=== PATIENT | female | born 1950 | race Caucasian/White ===

== ENCOUNTER → 2021-05-17 09:31 | Outpatient (CLI) | payer MEDICARE, OTHER, SELFPAY ==
--- NOTE | 2021-05-17 09:39 | ECHOD_ITS ---
Version 2 Reason For Study: MURMUR Procedure This was a 2D Doppler, Color Flow transthoracic echocardiogram. Exam performed in department. Left Ventricle Normal LV size. The estimated ejection fraction is 60 %. Normal diastology for age. No regional wall motion abnormalities noted. Right Ventricle Normal RV size. Normal systolic function. Atria Normal left atrium. Normal right atrium. No doppler evidence for ASD. Mitral Valve There is no mitral valve stenosis. Mild (1+) mitral valve insufficiency. Tricuspid Valve There is no tricuspid stenosis. Trivial tricuspid valve insufficiency. Unable to estimate RV systolic pressure due to insufficient tricuspid regurgitant envelope. Aortic Valve Trisinus/trileaflet aortic valve. There is no aortic stenosis. Mild (1+) aortic valve insufficiency. Pulmonic Valve There is no pulmonic valvular stenosis. Trivial pulmonic valve insufficiency. Great Vessels Normal aortic root. Pericardium/Pleural No pericardial effusion. MMode/2D Measurements & Calculations LVIDd: 4.0 cm IVSd: 0.85 cm Ao root diam: 3.0 cm LVIDs: 2.9 cm LVPWd: 0.81 cm RVDd: 2.8 cm FS: 27.7 % LAV(MOD-bp): 29.1 ml LVAd ap4: 26.8 cm2 SV(MOD-sp4): 46.7 ml LAV(MOD-bp) Indexed: 17.0 ml/m2 LVLd ap4: 7.5 cm LAV(MOD-sp2): 30.6 ml EDV(MOD-sp4): 78.0 ml LAV(MOD-sp4): 27.3 ml EDV(sp4-el): 81.4 ml LVAs ap4: 15.0 cm2 LVLs ap4: 6.0 cm ESV(MOD-sp4): 31.3 ml ESV(sp4-el): 32.0 ml EF(MOD-sp4): 59.9 % EF(sp4-el): 60.6 % SV(sp4-el): 49.4 ml LA A4 area: 13.0 cm2 LA dimension(2D): 3.1 cm RA A4 area: 10.4 cm2 Time Measurements MV dec time: 0.13 sec Doppler Measurements & Calculations MV E max jorge a: 51.9 cm/sec Lat Peak E' Jorge A: 8.3 cm/sec Med Peak E' Jorge A: 5.5 cm/sec MV A max jorge a: 76.7 cm/sec E/E' lat: 6.3 E/E' med: 9.4 MV E/A: 0.68 Ao V2 max: 139.8 cm/sec AI max jorge a: 548.9 cm/sec LV V1 max: 70.0 cm/sec Ao max P.8 mmHg AI max P.5 mmHg LV V1 max P.0 mmHg AI dec slope: 340.2 cm/sec2 AI P1/2t: 472.7 msec PA V2 max: 70.4 cm/sec ECHO/Echo Complete Interpretation Summary The estimated ejection fraction is 60 %. Mild (1+) mitral valve insufficiency. Mild (1+) aortic valve insufficiency. Ordering Physician: Flip Sanchez Referring Physician: Flip Sanchez Performed By: Thalia Orellana, IVANA
== END ==
PROVIDERS: PCP Family Medicine; Referring Provider Family Medicine; Visit Provider Family Medicine
DX: R01.1 Cardiac murmur, unspecified (principal); R06.02 Shortness of breath
CPT/HCPCS: 93306

== ENCOUNTER → 2022-12-30 | Outpatient (CLI) | payer MEDICARE, OTHER, SELFPAY ==
--- NOTE | 2022-12-30 17:24 | STRESSREP ---
Stress Test Report Exercise stress test. 72-year-old lady with a history of dyspnea on exertion Stress protocol: Resting EKG demonstrates normal sinus rhythm with a rate of 68 bpm resting blood pressure is 126/80 mmHg. The patient exercised according to the regular Ziggy protocol for a total duration of 3 minutes attaining a maximum heart rate of 137 bpm which was 92% of maximum predicted heart rate; the maximum workload was 4.8 metabolic equivalents. At rest there were no ST or T wave changes noted to suggest ischemia and at peak exercise upsloping ST changes only were noted which did not meet the criteria for ischemia. No clinical angina was noted the test was terminated due to the target heart rate being achieved/fatigue. The peak blood pressure was 168/78 mmHg. Rate-pressure product was 22,300. Conclusion: Exercise stress test with no EKG changes noted at a low workload of 4.8 METS. This may affect sensitivity for detection of ischemia.
== END | disposition home or self-care (01) ==
LOC: CVS 09:27
PROVIDERS: PCP Family Medicine; Referring Provider Family Medicine; Visit Provider Family Medicine
DX: R06.09 Other forms of dyspnea (principal)
CPT/HCPCS: 93017

== ENCOUNTER → 2023-01-01 | Outpatient (CLI) | payer MEDICARE, OTHER, SELFPAY ==
--- NOTE | 2023-01-01 13:43 | PFTCOMP ---
Complete pulmonary function test report Date: 01/01/2023 Indication: Dyspnea on exertion Referring physician: Francois Tong Smoking history: None Spirometry pre and post bronchodilator was normal: 1. No evidence of airway obstruction 2. No response to bronchodilator 3. Review of flow volume loop and volume-time curve morphology is corroborate the normal results above. The patient notes technical criteria of acceptability and reproducibility. The ophthalmology technician comments indicated a good patient effort. Lung volume studies by plethysmography were normal. 1. There was no evidence of restriction or hyperinflation. Diffusion capacity by single breath carbon monoxide technique was normal: 1. No evidence of gas exchange abnormality. 2. When corrected for lung volumes, the patient's DL/VA was 149% predicted, corroborating the lack of gas exchange abnormality. If further evaluation of possible airway reactivity is clinically indicated, methacholine challenge testing is recommended. Herminio Jarquin MD [facility] Pulmonary Medicine [facility] 01/01/2023, 1346 hrs.
== END | disposition home or self-care (01) ==
LOC: PSN 09:02
PROVIDERS: PCP Family Medicine; Referring Provider Family Medicine; Visit Provider Family Medicine
DX: R06.09 Other forms of dyspnea (principal); J84.10 Pulmonary fibrosis, unspecified
CPT/HCPCS: 94060; 94726; 94729

== ENCOUNTER → 2023-03-13 | Outpatient (CLI) | payer MEDICARE, OTHER, SELFPAY ==
[2023-03-13 12:23] LABS: Rheumatoid Factor < 10.0 IU/mL (<15)
[2023-03-14 13:09] LABS: ANTINUCLEAR ANTIBODIES DIRECT Negative (Negative)
[2023-03-14 14:10] LABS: CCP IgG Antibodies 3 units (0-19); Cytoplasmic Ab (C-ANCA) <1:20 titer (Neg:<1:20); Perinuclear Ab (P-ANCA) <1:20 titer (Neg:<1:20)
== END | disposition home or self-care (01) ==
LOC: PAVLAB 10:40
PROVIDERS: PCP Family Medicine; Referring Provider Internal Medicine Critical Care Medicine; Visit Provider Internal Medicine Critical Care Medicine
DX: J98.4 Other disorders of lung (principal)
CPT/HCPCS: 36415; 86038; 86200; 86225; 86235; 86256; 86431

== ENCOUNTER 2023-04-22 13:34 | Observation (INO) | payer MEDICARE, OTHER, SELFPAY ==
[2023-04-22] VITALS (14 sets, daily range): BP systolic 115–170; BP diastolic 69–104; PULSE 74–100; RESP 15–18; TEMP 36.1–36.6; O2SAT 95–96; BMI 24.1; BMI 23.1
--- NOTE | 2023-04-22 14:16 | ED.VIS.CHEST ---
HPI History of Present Illness Chief Complaint: Chest Pain Detail of Chief Complaint: Mid sternal chest pain radiating her left arm and jaw. Informant: patient Onset/Context/Timing Onset: Today and Hours Activity at onset: gradual Timing: Continuous Quality: Positive for Aching and Heaviness Location: Substernal and Left Chest Current Severity: Moderate Maximum Severity: Moderate Worsened By: Nothing Relieved By: Nothing Associated Symptoms: Positive for Nausea and Dyspnea Narrative Narrative: 72-year-old female complaining of midsternal chest pain rating to her left arm since last 2 hours. No history of OH or CAD. No prior cardiac catheterization. She reportedly had a negative stress test around December. She does have a history of reflux states that this feels totally different and much worse than her reflux.. Prior Similar Symptoms: No Recent Illness/Hospitalization: No CVD Risk Factors: Positive for Hypertension; Negative for Diabetes or Smoking PE Risk Factors: Negative for Recent Travel/Surgery, Recent Immobilization, Prior DVT or PE, Cancer or OCP + Smoking + >/=35 TAD Risk Factors: Negative for Marfan's Syndrome [facility] Medical History Coronary artery calcification seen on CAT scan Family history of diabetes mellitus Family history of early CAD Family history of [place]'s disease GERD (gastroesophageal reflux disease) Hiatal hernia Hypercholesteremia Hyperlipemia Primary hypertension Pulmonary fibrosis Home Medications aspirin 81 mg chewable tablet ([place] Chewable Low Dose Aspirin) 81 mg PO DAILY HEART HEALTH 03/04/23 [History Last Taken Unknown] benazepril 10 mg tablet (Lotensin) 10 mg PO DAILY BLOOD PRESSURE 03/04/23 [History Last Taken Unknown] ezetimibe 10 mg tablet (Zetia) 10 mg PO DAILY CHOLESTEROL 03/04/23 [History Last Taken Unknown] meclizine 25 mg tablet 25 mg PO DAILY PRN DIZZINESS 03/04/23 [History Last Taken Unknown] metoclopramide HCl 5 mg tablet (Reglan) 5 mg PO QAC HEARTBURN 03/04/23 [History Last Taken Unknown] omeprazole 40 mg capsule,delayed release 40 mg PO BID ACID REFLUX 03/04/23 [History Last Taken Unknown] simvastatin 20 mg tablet (Zocor) 20 mg PO QHS CHOLESTEROL 03/04/23 [History Last Taken Unknown] Allergy/AdvReac Type Severity Reaction Status Date / Time Penicillins Allergy Nausea Verified 03/04/23 08:27 Family History Mother , age 60 Diabetes Heart disease Father , age 50 Myocardial infarction Sister Diabetes Sister , age 60 Donte disease Brother , age 50 AA (alcohol abuse) [place] disease Brother , age 60 [place] disease Surgical History H/O colonoscopy History of bilateral cataract extraction History of bladder suspension procedure History of total abdominal hysterectomy Social History household members: spouse housing: house Smoking Status: Never smoker second hand exposure: Yes alcohol intake: never ROS ROS ED ROS Narrative Pain. Nausea. Dyspnea. Review of Systems ROS Unobtainable: Denies due to encephalopathy Constitutional Constitutional ED: Denies chills or fever(s) Eyes Eyes: Reports none ENT ENT ED: Denies ear pain, rhinorrhea or sore throat Cardiovascular Cardiovascular: Reports chest pain; Denies palpitations or racing heartbeat Respiratory/Chest Respiratory/Chest: Reports dyspnea; Denies cough Gastrointestinal Gastrointestinal: Reports nausea; Denies abdominal pain Genitourinary Genitourinary ED: Denies dysuria or hematuria Musculoskeletal Musculoskeletal: Denies arthralgias Integumentary Denies abscess or Abrasions Neurologic Neurologic: Denies headache(s) Psychiatric Psychiatric: Denies anxiety Endocrine Endocrinology: Denies cold intolerance Hematologic/Lymphatic Hematologic/Lymphatic: Denies easy bleeding, easy bruising or lymphadenopathy Allergic/Immunologic Allergic/Immunologic ED: Denies mouth swelling, tongue swelling or urticaria EXAM Physical Exam Narrative Exam Narrative: 72-year-old female male no acute distress. Vital signs stable. Afebrile. H EENT exam unremarkable. Neck nontender. Lungs clear to auscultation bilaterally. Heart regular rhythm no murmur. Chest wall does have some reproducible midsternal pain. Abdomen soft nontender. Moving all 4 extremities. Calves are nontender without edema or cords. Equal symmetrical radial pulses. Logically she is awake and alert. Const Vital Signs: 04/22/23 13:35 04/22/23 13:40 04/22/23 14:09 Temperature 97.1 F L Temperature Source Temporal Pulse Rate 100 Respiratory Rate 16 Respiratory Effort Short of Breath Blood Pressure 166/93 H Blood Pressure Mean 117 Oxygen Delivery Method Room Air Room Air 04/22/23 15:14 04/22/23 14:35 04/22/23 15:00 Temperature Temperature Source Pulse Rate 94 84 85 Respiratory Rate Respiratory Effort Blood Pressure 154/81 H 136/92 H 152/80 H Blood Pressure Mean 106 104 Oxygen Delivery Method 04/22/23 16:22 Temperature Temperature Source Pulse Rate 86 Respiratory Rate 15 Respiratory Effort Blood Pressure 115/80 Blood Pressure Mean 91 Oxygen Delivery Method Positive well nourished and well developed; Negative for obese, cachectic, contractures or unkempt General Appearance ED: well developed and NAD; Negative for unkempt, cachectic, contractures or pallor Nutritional Appearance: Negative for cachectic or obese HEENT Reports moist mucous membranes; Denies dry mucous membranes normocephalic and atraumatic; Negative for trauma or tenderness Mouth ED: No dry mucous membranes Mouth: No dry mucous membranes Eyes PERRL and EOMs intact bilaterally General Eye ED: Negative for pale conjunctiva or scleral icterus Neck no lymphadenopathy, supple and no JVD General: Negative for tenderness Chest Wall inspection of chest normal; Negative for palpation of chest normal Chest Narrative: Sternal chest pain with palpation. Chest: tenderness Resp normal respiratory effort and clear to auscultation bilaterally Effort and Inspection: Negative for respiratory distress Auscultation: Negative for rales or rhonchi Cardio regular rate, regular rhythm, S1 normal heart sound, S2 normal heart sound and no murmurs Rate: Negative for bradycardia or tachycardic Rhythm: Negative for abnormal rhythm Peripheral Pulses: pulses 2+ throughout GI normal to inspection, nondistended, normoactive bowel sounds, soft to palpation, non-tender, non-distended and no masses Back/Spine no CVA tenderness and no thoracic nor lumbar tenderness General Back: Negative for CVA tenderness Cervical Spine: Negative for cervical spine tenderness Extremity normal to inspection General Extremety ED: Negative for edema, pulses abnormal or tenderness General Extremity: Negative for edema or pulses abnormal Neuro oriented x3 and CN's II-XII intact bilaterally Sensorium / Orientation: awake, alert, oriented to person, oriented to place and oriented to time; Negative for confused, lethargic or stuporous Motor Exam: strength 5/5 throughout Psych mental status grossly normal Appearance: Negative for unkempt Attitude: No agitated Mood & Affect: Negative for depressed, anxious or tearful Skin no rashes or lesions noted and no wounds General Skin Exam: Negative for jaundice or pallor Rashes: No rashes noted Trauma: Negative for abrasion Heart Score History: Moderately Suspicious ECG: Normal Age: >/= 65 years Risk Factors: 1 or 2 Risk Factors Troponin: </= Normal Limit Score: 4 MDM MDM MDM Narrative Medical decision making narrative: 72-year-old female with history of reflux no cardiac history. However she does have concerning story for chest pain but it came on at rest. There is a reproducible component. Her initial EKG is unremarkable. She undergo cardiac work-up. She is already received aspirin per squad. She will be given sublingual nitro to see if that does anything for her discomfort. Repeat exam at 4:05 PM has improved she still some discomfort. Repeat EKG is being obtained. She did not feel the nitro made any significant difference. We will speak to the hospitalist about admission. Also spoke to cardiology. History & Record Review Discussion w/independent historian: Patient Additional record(s) reviewed:: Prior inpatient record, Prior outpatient record, Prior ED visit and Prior labs Lab Data Attestation: I reviewed the patient's lab results. Lab results narrative: CBC unremarkable. White count of 10.5. H&H 11.9 and 38.4. Platelets 223. Electrolytes show gap of 7. BUN and creatinine is 17 and 1. Glucose 121. Troponin is normal at 43. Repeat 2-hour troponin was the same at 43 also. Chest x-ray shows cardiomegaly and a large hiatal hernia. Labs: Laboratory Results - last 24 hr 04/22/23 04/22/23 14:17 16:27 WBC 10.5 RBC 4.19 L Hgb 11.9 L Hct 38.4 MCV 91.6 MCH 28.4 MCHC 31.0 L RDW Std Deviation 47.2 H RDW Coeff of Rocio 14.0 Plt Count 223 MPV 9.9 Immature Gran % (Auto) 0.500 Neut % (Auto) 80.4 H Lymph % (Auto) 12.0 L [place] % (Auto) 6.6 Eos % (Auto) 0.1 Baso % (Auto) 0.4 Absolute Neuts (auto) 8.4 H Absolute Lymphs (auto) 1.26 Nucleated RBC % 0 Sodium 138 Potassium 3.7 Chloride 108 H Carbon Dioxide 23.0 Anion Gap 7 BUN 17 Creatinine 1.03 H Estim Creat Clear Calc 46.22 Est GFR (MDRD) Af Amer 68 Est GFR (MDRD) Non-Af 56 L BUN/Creatinine Ratio 16.5 Glucose 121 H Calcium 8.3 L Troponin I High Sens 43 43 Radiography Chest X-Ray - ED: 1 View, Read by ED Physician, Lungs, Mediastinum, Bony Structures, No Acute Disease, Chronic Changes and Cardiomegaly Diagnostic Testing: Clinical Impression(s) from Imaging Studies Chest X-Ray 04/22/23 14:30 IMPRESSION: Mild cardiomegaly. Large hiatal hernia. Electronically Signed: Mamadou Galaviz MD at 14:42 EDT , History, portable, single view medically. Large anal hernia. Normal mediastinum. Normal lung gill. Chronic changes. Interpreted both by myself and the radiologist. Rhythm Strip Rhythm Strip: Sinus Rhythm Rate: 93 Ectopy: PAC(s) EKG Initial EKG: Attestation: I personally reviewed and interpreted this EKG as follows: Interpretation: Sinus Rhythm and No Acute Injury Pattern Comments: Sinus rhythm rate of 93. No acute signs of OH or ischemia. Few PACs. Follow-up EKG: Attestation: I personally reviewed and interpreted this EKG as follows: Interpretation: Sinus Rhythm and No Acute Injury Pattern Comments: Repeat EKG performed at 6:13 PM. Normal sinus rhythm rate 88. No significant change from the prior initial EKG done. No acute signs of OH. No significant ST elevation or depression. Prior EKG tracings: available for review Prior: Unchanged Management Discussion w/another healthcare provider: Hospitalist Discharge Plan Triage Chief Complaint: Chest Pain ED Provider: Peter Elena Dx/Rx/DC Orders Clinical Impression: Chest pain of uncertain etiology Prescriptions: No Action aspirin [[place] Chewable Aspirin] 81 mg tablet,chewable 81 mg PO DAILY ezetimibe [Zetia] 10 mg tablet 10 mg PO DAILY meclizine 25 mg tablet 25 mg PO DAILY PRN (Reason: DIZZINESS ) metoclopramide HCl [Reglan] 5 mg tablet 5 mg PO QAC benazepril [Lotensin] 10 mg tablet 10 mg PO DAILY omeprazole 40 mg capsule,delayed release(DR/EC) 40 mg PO BID simvastatin [Zocor] 20 mg tablet 20 mg PO QHS Primary Care Provider: Francois Tong Referrals: Francois Tong DO [Primary Care Provider] -
[2023-04-22 14:24] LABS: Absolute Lymphocyte Count 1.26 X10^3/uL (0.83-4.51); Absolute Neutrophil Count 8.4 X10^3/uL (2.0-7.7); Basophil# 0.04 X10^3/uL; Basophil% 0.4 % (0-1); Eosinophil# 0.01 X10^3/uL; Eosinophils% 0.1 % (0-5); Hematocrit 38.4 % (37-47); Hemoglobin 11.9 g/dL (12.0-15.0); Lymphocyte # 1.26 X10^3/ul (0.83-4.51); Mean Corpuscular Hgb 28.4 pg (27.0-32.0); Mean Corpuscular Volume 91.6 fL (81-99); Mean Platelet Vol. 9.9 fl (6.2-12.0); Monocyte# 0.69 X10^3/uL; Monocyte% 6.6 % (0-10); NRBC Flagged by Analyzer 0 % (0-5); Neutrophil # 8.44 X10^3/uL (2.7-7.7); Neutrophil % 80.4 % (47-70); Platelet Count 223 K/mm3 (150-450); RBC Distribution Width SD 47.2 fl (35.1-43.9); Red Blood Count 4.19 M/mm3 (4.2-5.4); White Blood Count 10.5 K/mm3 (4.4-11.0)
--- NOTE | 2023-04-22 14:30 | RAD_ITS ---
STUDY: X-RAY CHEST REASON FOR EXAM: Female, 72 years old. Chest pain TECHNIQUE: Single AP portable view of the chest. COMPARISON: None. FINDINGS: EKG electrodes are seen. The lungs are clear and expanded. There is no demonstrated pleural abnormality. There is mild cardiac enlargement. Normal mediastinum and daphnie. Normal visualized pulmonary arteries. There is atherosclerotic calcification of the aortic arch with tortuosity. Normal visualized thoracic spine. Normal visualized ribs, clavicles, and shoulders. Large hiatal hernia. RAD/Chest 1 View (Portable) IMPRESSION: Mild cardiomegaly. Large hiatal hernia. Electronically Signed: Mamadou Galaviz MD at 14:42 EDT ,
[2023-04-22 14:45] LABS: Anion Gap 7 (5-15); BUN 17 mg/dL (7-18); BUN/Creat Ratio 16.5 RATIO (10-20); Calcium,Total 8.3 mg/dL (8.5-10.1); Chloride 108 mmol/L (98-107); Creatinine, Serum 1.03 mg/dL (0.55-1.02); EST Glomerular Filtration Rate 56 mL/min (>60); Est Glom Filt Rate - Afr Amer 68 mL/min (>60); Estimated Creatinine Clearance 46.22 ml/min; Glucose 121 mg/dL (74-106); Potassium 3.7 mmol/L (3.5-5.1); Sodium Level 138 mmol/L (136-145); Troponin-I HS (w/2H Reflex) 43 pg/mL (3.0-54.0)
[2023-04-22] MEDS: Nitroglycerin SL (ED/IMG/CATH) 0.4 MG TABLET SL (15:14)
[2023-04-22 16:20] LABS: Reflex Troponin-HS? (from REC) Y
[2023-04-22 16:54] LABS: Troponin-I HS 43 pg/mL (3.0-54.0)
--- NOTE | 2023-04-22 17:49 | PCM.HP.STD ---
HPI - General General Date of Admission: 04/22/23 Date of Service: 04/22/23 Chief Complaint: Chest pain HPI Narrative HERMELINDO MANZO, is a 72 F who presented to the emergency department at [facility] on 04/22/2023 after experiencing chest pain. Patient reports it started at noon and she was in her kitchen getting some potato chips and had just eaten them. She states the pain started in her chest and felt like pressure radiated to her left arm and up into her bilateral neck. She had never had this previously. She has had ongoing fatigue for couple years and worsening shortness of breath for about the last 2 months. She had a stress test in December that was unremarkable and had PFTs done at that time which showed mild restrictive impairment however no signs of obstructive disease or explanation for her exertional shortness of breath. She does have a history of hypertension hyperlipidemia. She has a strong family history of coronary disease with both of her parents dying young. Mother at 62 from coronary disease and she states her father at about 58 from coronary disease. She has 1 sister with coronary disease as well. She has never had any previous cardiac issues. She has no history of tobacco abuse however she was exposed as a child. She was given nitro in the emergency department and her symptoms did subside. She is currently chest pain-free. She had some associated nausea but denies any associated diaphoresis or shortness of breath at the time of her chest pain. Vital signs on presentation showed temperature of 97.1, heart rate 100, blood pressure 166/93, respiratory was 16 oxygen saturations were 99% on room air. CBC was overall unremarkable other than mild anemia at 11.9 however baseline is unclear. Her chemistry panel was unremarkable. Serum glucose was 121 on presentation. Troponin was 43 and 43 on delta. EKG shows sinus rhythm without any interval abnormalities or ST-T wave changes concerning for acute ischemia. Her chest x-ray shows a hiatal hernia and mild cardiomegaly but no acute findings. The case was discussed by the emergency department with cardiology. Cardiology recommended a CT angiogram however these are unable to be done as an inpatient and with her symptoms and risk factors it was felt admission with evaluation for possible cardiac catheterization given her recent negative stress test was prudent. This was discussed with the family and she agreed to admission. [facility] Medical History (Updated 04/22/23 @ 17:[address] Stefany Durham, DO) Anemia Coronary artery calcification seen on CAT scan Family history of diabetes mellitus Family history of early CAD Family history of Donte's disease GERD (gastroesophageal reflux disease) Hiatal hernia Hypercholesteremia Hyperlipemia Primary hypertension Pulmonary fibrosis Home Medications aspirin 81 mg chewable tablet ([place] Chewable Low Dose Aspirin) 81 mg PO DAILY HEART HEALTH 03/04/23 [History Last Taken Unknown] benazepril 10 mg tablet (Lotensin) 10 mg PO DAILY BLOOD PRESSURE 03/04/23 [History Last Taken Unknown] ezetimibe 10 mg tablet (Zetia) 10 mg PO DAILY CHOLESTEROL 03/04/23 [History Last Taken Unknown] meclizine 25 mg tablet 25 mg PO DAILY PRN DIZZINESS 03/04/23 [History Last Taken Unknown] metoclopramide HCl 5 mg tablet (Reglan) 5 mg PO QAC HEARTBURN 03/04/23 [History Last Taken Unknown] omeprazole 40 mg capsule,delayed release 40 mg PO BID ACID REFLUX 03/04/23 [History Last Taken Unknown] simvastatin 20 mg tablet (Zocor) 20 mg PO QHS CHOLESTEROL 03/04/23 [History Last Taken Unknown] Allergy/AdvReac Type Severity Reaction Status Date / Time Penicillins Allergy Nausea Verified 03/04/23 08:27 Family History Mother , age 60 Diabetes Heart disease Father , age 50 Myocardial infarction Sister Diabetes Sister , age 60 Snyder disease Brother , age 50 AA (alcohol abuse) [place]note disease Brother , age 60 Snyder disease Surgical History H/O colonoscopy History of bilateral cataract extraction History of bladder suspension procedure History of total abdominal hysterectomy Social History household members: spouse housing: house Smoking Status: Never smoker second hand exposure: Yes alcohol intake: never ROS Constitutional Constitutional: Denies anorexia, change in weight, chills, fatigue, fever(s), malaise, night sweats, weakness or other Eyes Eyes: Denies blurry vision, change in eye color, change in vision, discharge from eye(s), double vision, erythema, eye pain, loss of vision or other ENT HEENT: Denies abnormal hearing, dysphagia, ear pain, epistaxis, headache(s), hearing loss, nasal congestion, nasal discharge, post nasal drip, sinus pressure, sore throat or other Cardiovascular Cardiovascular: Reports chest pain; Denies claudication, dyspnea on exertion, edema, lightheadedness, orthopnea, palpitations, paroxysmal nocturnal dyspnea, rapid heart rate, syncope or other Respiratory/Chest Respiratory/Chest: Reports shortness of breath with exertion; Denies cough, dyspnea, excessive phlegm production, hemoptysis, productive cough, shortness of breath at rest, wheezing or other Gastrointestinal Gastrointestinal: Reports dyspepsia and nausea; Denies abdominal pain, coffee ground emesis, constipation, diarrhea, hematemesis, hematochezia, loose stools, melena, vomiting or other Genitourinary Genitourinary: Denies burning urination, difficulty urinating, dysuria, hematuria, nocturia, urinary frequency, urinary hesitancy, urinary incontinence, urinary urgency or other Musculoskeletal Musculoskeletal: Denies arthralgias, back pain, joint pain, joint stiffness, joint swelling, myalgias, neck pain or other Neurologic Neurologic: Denies abnormal gait, abnormal speech, confusion, disequilibrium, dizziness, focal weakness, headache(s), numbness, paresthesias, seizure-like activity, seizures, syncope, tingling, tremor(s) or other Psychiatric Psychiatric: Denies anxiety, depression, homicidal ideation, suicidal ideation or other Endocrine Endocrinology: Denies change in body appearance, cold intolerance, excessive sweating, heat intolerance, polydipsia, polyuria or other Hematologic/Lymphatic Hematologic/Lymphatic: Denies anemia, easy bleeding, easy bruising, lymphadenopathy or other Allergic/Immunologic Allergic/Immunologic: Denies rhinitis, hives, eczemia, asthma or other Vital Signs Vital Signs Vital Signs: 04/22/23 13:35 04/22/23 13:40 04/22/23 14:09 Temperature 97.1 F L Temperature Source Temporal Pulse Rate 100 Respiratory Rate 16 Respiratory Effort Short of Breath Blood Pressure 166/93 H Blood Pressure Mean 117 Oxygen Delivery Method Room Air Room Air 04/22/23 15:14 04/22/23 14:35 04/22/23 15:00 Temperature Temperature Source Pulse Rate 94 84 85 Respiratory Rate Respiratory Effort Blood Pressure 154/81 H 136/92 H 152/80 H Blood Pressure Mean 106 104 Oxygen Delivery Method 04/22/23 16:22 Temperature Temperature Source Pulse Rate 86 Respiratory Rate 15 Respiratory Effort Blood Pressure 115/80 Blood Pressure Mean 91 Oxygen Delivery Method Weight Weight: 67.8 kg Body Mass Index (BMI) 24.1 Physical Exam Const alert, oriented x3, no apparent distress, average body habitus and well nourished Constitutional Narrative: Very pleasant, older, white female, sitting up in bed and appears comfortable, family at bedside General Appearance: cooperative HEENT normocephalic, head/scalp atraumatic, hearing grossly normal bilaterally and moist oral mucous membranes HEENT Narrative: Mallampati 2, no thrush Resp normal respiratory effort, no retractions, no use of accessory muscles and clear to auscultation bilaterally Auscultation: Negative for rales, rhonchi or wheezes Cardio regular rate, regular rhythm, S1 normal heart sound, S2 normal heart sound, no murmurs, no rub, no gallops and no clicks GI normal to inspection, nondistended, normoactive bowel sounds, soft to palpation and non-tender Extremity no clubbing, cyanosis or edema Extremity Narrative: Pedal pulses are 2+ Neuro oriented x3, moves all extremities and no focal motor deficits Speech: speech normal Psych affect normal Psych Narrative: Very pleasant, eye contact is good, patient appropriately interactive Results Lab / Micro Data 04/22/23 14:17 04/22/23 14:17 Labs: Laboratory Results - last 24 hr 04/22/23 14:17: WBC 10.5, RBC 4.19 L, Hgb 11.9 L, Hct 38.4, MCV 91.6, MCH 28.4, MCHC 31.0 L, RDW Std Deviation 47.2 H, RDW Coeff of Rocio 14.0, Plt Count 223, MPV 9.9, Immature Gran % (Auto) 0.500, Neut % (Auto) 80.4 H, Lymph % (Auto) 12.0 L, [place] % (Auto) 6.6, Eos % (Auto) 0.1, Baso % (Auto) 0.4, Absolute Neuts (auto) 8.4 H, Absolute Lymphs (auto) 1.26, Nucleated RBC % 0, Sodium 138, Potassium 3.7, Chloride 108 H, Carbon Dioxide 23.0, Anion Gap 7, BUN 17, Creatinine 1.03 H, Estim Creat Clear Calc 46.22, Est GFR (MDRD) Af Amer 68, Est GFR (MDRD) Non-Af 56 L, BUN/Creatinine Ratio 16.5, Glucose 121 H, Calcium 8.3 L, Troponin I High Sens 43 04/22/23 16:27: Troponin I High Sens 43 Rhythm Strip Rhythm Strip: Sinus Rhythm Rate: 93 Ectopy: PAC(s) Radiology Impression Chest X-Ray 04/22/23 14:30 IMPRESSION: Mild cardiomegaly. Large hiatal hernia. Electronically Signed: Mamadou Galaviz MD at 14:42 EDT , Assessment & Plan Assessment/Plan (1) Chest pain: PLAN: Plan Chest pain -Patient has been having ongoing fatigue and dyspnea with exertion -Very strong familial history of coronary disease with mother dying at 62 from CAD in father dying in his 50s from CAD -Negative stress test in December -Had unremarkable PFTs in December as well -Last echocardiogram was from 2020 and showed an EF of 60% with mild mitral valve and aortic valve insufficiency -Continue aspirin 81 mg -Repeat echocardiogram -Cycle cardiac enzymes -Check lipid panel -Check hemoglobin A1c -Continue home antihyperlipidemia medications -Continue home antihypertensives and add metoprolol 12.5 mg p.o. twice daily -ER touch base with cardiology and they recommended a CT angio however this needs to be done as an outpatient with negative stress test and her story she may very well require cardiac catheterization -We will make patient n.p.o. after midnight -Cardiology consultation is pending Hypertension -Continue home BenzePrO -Add metoprolol 12.5 mg p.o. twice daily Hyperlipidemia -Continue home Zetia -Continue home simvastatin -Check lipid panel GERD/hiatal hernia -Hold home Reglan -Continue home omeprazole Pulmonary fibrosis -Lifelong non-smoker but did have smoke exposure as a child -Work-up in progress -Follows with pulmonary medicine DVT prophylaxis -Subcu Lovenox CODE STATUS -Full code Charges/Coding Visit Charges Inpatient E&M: 10868 Init Hosp L2
[2023-04-22 19:13] LABS: D-Dimer Quantitative (DVT/PE) 1.73 FEU/ug/m (0.27-0.49)
[2023-04-22 19:15] LABS: Hemoglobin A1c 5.7 % (3.8-5.6)
--- NOTE | 2023-04-22 20:40 | CT_ITS ---
EXAM: CT pulmonary angiogram. HISTORY: chest pain TECHNIQUE: CTA Chest WO/W Contrast Injection A radiation dose optimization technique was used for this scan. Multiplanar reconstructions were obtained. 3-D postprocessing was performed. COMPARISON: None. LIMITATIONS: None. LUNGS: No confluent airspace disease. Few foci of suspected peripheral trace mucus plugging. PULMONARY VESSELS: No pulmonary emboli identified. PLEURA: Normal. MEDIASTINUM: Normal. HEART: Normal. AORTA: No thoracic aortic aneurysm or dissection. ESOPHAGUS: Large hiatal hernia. Nearly the entire stomach is within the chest. UPPER ABDOMEN: No significant abnormality. BONES/SOFT TISSUES: No acute fracture. Pectus deformity. OTHER: None. CONCLUSION: No evidence of pulmonary embolism. Large hiatal hernia. Electronically Signed: Uri Barry MD at 21:15 EDT , CT/CTA Chest W/WO Contrast IMPRESSION: undefined
[2023-04-22 21:37] LABS: Cholesterol 144 mg/dL (200); High Density Lipoprotein 56 mg/dL; Triglycerides 86 mg/dL; Very Low Density Lipoprotein 17 mg/dL (5-40)
[2023-04-22 21:46] LABS: Troponin-I HS 48 pg/mL (3.0-54.0)
[2023-04-22] MEDS: Metoprolol Tartrate 25 MG Tablet 12.5 MG PO (22:05)
[2023-04-22] MEDS: Pantoprazole Sodium 40 MG Tablet PO (22:05)
[2023-04-22] MEDS: Atorvastatin Calcium 10 MG Tablet PO (22:06)
[2023-04-22] MEDS: Nitroglycerin (INPATIENT USE) 0.4 MG TAB.SUBL SL ×3 (22:56→23:06)
--- NOTE | 2023-04-22 23:00 | NURSING ---
Pt c/o chest pain 03/06, given nitro x3 and morphine. Pt emesis x1 that appeared to look like stool. KUB done-appeared to look okay and showed a large hiatal hernia. Zofran given, pt now sleeping, resting comfortably.
[2023-04-22] MEDS: Morphine 2 MG/ML Syringe IV (23:22)
--- NOTE | 2023-04-22 23:35 | RAD_ITS ---
INDICATION: nausea and vomiting EXAMINATION/TECHNIQUE: X-RAY - XR Abdomen 1 View COMPARISON: Chest x-ray April 22, 2023 FINDINGS: A single frontal supine view of the abdomen was obtained. A large hiatal hernia is partially visualized, better demonstrated on the chest x-ray from the same day. No gross free air identified. No diffuse small bowel dilatation. A moderate amount of stool is identified. Excreted contrast in the renal collecting systems bilaterally as well as the ureters and bladder. RAD/Abdomen Single View (Portable) IMPRESSION: Large hiatal hernia. Electronically Signed: Uri Barry MD at 0:02 EDT ,
[2023-04-22] MEDS: Ondansetron 4 MG/2 ML Vial IV (23:40)
[2023-04-22] MEDS: Lactated Ringers 1,000 ML 60 ML IV (23:50)
[2023-04-23 03:08] VITALS: BP 125/69; PULSE 76; RESP 16; TEMP 37; O2SAT 96
[2023-04-23 05:38] LABS: Absolute Lymphocyte Count 1.37 X10^3/uL (0.83-4.51); Absolute Neutrophil Count 5.7 X10^3/uL (2.0-7.7); Basophil# 0.03 X10^3/uL; Basophil% 0.4 % (0-1); Eosinophil# 0.01 X10^3/uL; Eosinophils% 0.1 % (0-5); Hematocrit 35.6 % (37-47); Hemoglobin 10.9 g/dL (12.0-15.0); Lymphocyte # 1.37 X10^3/ul (0.83-4.51); Lymphocyte % 17.8 % (19-41); Mean Corp Hgb Conc 30.6 g/dL (32-36); Mean Corpuscular Hgb 27.7 pg (27.0-32.0); Mean Corpuscular Volume 90.6 fL (81-99); Mean Platelet Vol. 10.2 fl (6.2-12.0); Monocyte# 0.51 X10^3/uL; Monocyte% 6.6 % (0-10); NRBC Flagged by Analyzer 0 % (0-5); Neutrophil # 5.73 X10^3/uL (2.7-7.7); Neutrophil % 74.7 % (47-70); Platelet Count 243 K/mm3 (150-450); RBC Distribution Width CV 14.2 % (11.6-14.6); Red Blood Count 3.93 M/mm3 (4.2-5.4); White Blood Count 7.7 K/mm3 (4.4-11.0)
--- NOTE | 2023-04-23 05:55 | ECHOCS_ITS ---
Reason For Study: Chest Pain Procedure This was a 2D Doppler, Color Flow transthoracic echocardiogram. The study was technically difficult. Contrast injection was performed. Exam performed portable in patient room. Left Ventricle Normal size and thickness. The left ventricular ejection fraction is 65 %. Normal diastology for age. Right Ventricle Normal right ventricle. Atria The left and right atria are normal. Mitral Valve Mild (1+) mitral valve insufficiency. Tricuspid Valve Mild tricuspid valve insufficiency. Normal pulmonary artery pressure. Aortic Valve Trisinus/trileaflet aortic valve. Mild-Moderate (1-2+) aortic valve insufficiency. Pulmonic Valve Trivial pulmonic valve insufficiency. Great Vessels Mildly dilated aortic root. Mild atherosclerosis of the aortic arch. Pericardium/Pleural No pericardial effusion. Medication Diluted definity 2.5ml given slow IV push to enhance endocardial definition. MMode/2D Measurements & Calculations LVIDd: 4.7 cm IVSd: 1.0 cm Ao root diam: 3.6 cm LVIDs: 3.0 cm LVPWd: 0.88 cm LA dimension: 3.7 cm RVDd: 3.3 cm FS: 36.0 % LAV(MOD-bp): 50.5 ml LVAd ap4: 27.9 cm2 SV(MOD-sp4): 45.1 ml LAV(MOD-bp) Indexed: 29.1 ml/m2 LVLd ap4: 7.7 cm LAV(MOD-sp2): 55.9 ml EDV(MOD-sp4): 81.0 ml LAV(MOD-sp4): 40.6 ml EDV(sp4-el): 85.7 ml LVAs ap4: 16.6 cm2 LVLs ap4: 6.4 cm ESV(MOD-sp4): 35.9 ml ESV(sp4-el): 36.8 ml EF(MOD-sp4): 55.7 % EF(sp4-el): 57.0 % SV(sp4-el): 48.9 ml LA A4 area: 17.1 cm2 RA A4 area: 13.9 cm2 TAPSE: 1.9 cm Time Measurements MV dec time: 0.24 sec Doppler Measurements & Calculations MV E max jorge a: 64.2 cm/sec Lat Peak E' Jorge A: 10.5 cm/sec Med Peak E' Jorge A: 7.3 cm/sec MV A max jorge a: 67.8 cm/sec E/E' lat: 6.1 E/E' med: 8.8 MV E/A: 0.95 MV V2 max: 75.0 cm/sec MV P1/2t max jorge a: 75.0 cm/sec Ao V2 max: 130.1 cm/sec MV max P.2 mmHg MV P1/2t: 76.9 msec Ao max P.8 mmHg MV V2 mean: 39.8 cm/sec Ao V2 mean: 92.0 cm/sec MV mean P.77 mmHg MV dec slope: 285.8 cm/sec2 Ao mean P.9 mmHg MV V2 VTI: 24.7 cm MVA(P1/2t): 2.9 cm2 Ao V2 VTI: 31.6 cm AV (velocity ratio): 0.67 AI max jorge a: 443.8 cm/sec LV V1 max: 87.8 cm/sec MR max jorge a: 536.0 cm/sec AI max P.9 mmHg LV V1 max P.1 mmHg MR max P.9 mmHg LV V1 mean P.8 mmHg AI dec slope: 258.6 cm/sec2 LV V1 mean: 64.2 cm/sec AI P1/2t: 502.7 msec LV V1 VTI: 21.3 cm PA V2 max: 58.1 cm/sec TR max jorge a: 244.7 cm/sec TR max P.9 mmHg ECHO/Echo Complete W/ Contrast Interpretation Summary The left ventricular ejection fraction is 65 %. Mild (1+) mitral valve insufficiency. Mild-Moderate (1-2+) aortic valve insufficiency. Mildly dilated aortic root. Mild atherosclerosis of the aortic arch. Ordering Physician: Stefany Durham Performed By: Ronaldo Kebede RCS
[2023-04-23 06:07] LABS: ALB/GLOB Ratio 1.1 RATIO (0.9-2.4); AST(SGOT) 11 U/L (15-37); Alanine Aminotransfer ALT/SGPT 15 U/L (13-56); Albumin, Serum 3.1 g/dL (3.2-5.0); Alkaline Phosphatase 95 U/L (45-117); Anion Gap 4 (5-15); BUN 12 mg/dL (7-18); BUN/Creat Ratio 16.2 RATIO (10-20); Calcium,Total 8.4 mg/dL (8.5-10.1); Chloride 112 mmol/L (98-107); Creatinine, Serum 0.74 mg/dL (0.55-1.02); EST Glomerular Filtration Rate 82 mL/min (>60); Est Glom Filt Rate - Afr Amer 99 mL/min (>60); Globulin 2.8 g/dL (2.2-4.2); Glucose 106 mg/dL (74-106); Magnesium 2.2 mg/dL (1.6-2.6); Phosphorus 3.8 mg/dL (2.5-4.9); Potassium 4.4 mmol/L (3.5-5.1); Protein, Total 5.9 g/dL (6.4-8.2); Sodium Level 141 mmol/L (136-145)
[2023-04-23 07:55] VITALS: BP 123/73; PULSE 71; RESP 18; TEMP 37; O2SAT 96
[2023-04-23] MEDS: Acetaminophen 325 MG Tablet 650 MG PO (08:09)
[2023-04-23] MEDS: Aspirin 81 MG TAB.CHEW PO (08:10)
[2023-04-23] MEDS: Pantoprazole Sodium 40 MG Tablet PO (08:10)
[2023-04-23 08:11] VITALS: PULSE 72
[2023-04-23] MEDS: Lisinopril 10 MG Tablet PO (08:11)
[2023-04-23] MEDS: Ezetimibe 10 MG Tablet PO (08:11)
[2023-04-23] MEDS: Metoprolol Tartrate 25 MG Tablet 12.5 MG PO (08:11)
[2023-04-23] MEDS: Mag Hydrox/Al Hydrox/Simeth 30 ML UDC PO (09:14)
--- NOTE | 2023-04-23 12:56 | PCM.CONS.C ---
Assessment & Plan Assessment/Plan (1) Chest pain: PLAN: Chest and shoulder discomfort exaggerated with movement of the left arm and shoulder. Atypical. However patient gives strong family history of coronary artery disease. Will recommend coronary CT angio as outpatient. Meanwhile continue aspirin. Start low-dose amlodipine. (2) History of hypertension: PLAN: On benazepril. Start low-dose amlodipine. (3) Dyslipidemia: PLAN: As per internal medicine. (4) Hiatal hernia: PLAN: As per internal medicine. HPI Consult Data Date of Consult: 04/23/23 HPI Narrative Reason for Consultation: Chest pain HPI Narrative: This patient presented to the emergency room with complaints of chest pain that started while she was eating dinner. According to her, the pain was rather sharp. Radiated to the left arm. No associated diaphoresis. Some associated shortness of breath. No nausea or vomiting. Per her, the pain lasted about 2 hours total. Relieved on its own. Per her, the discomfort was exaggerated if she would move her left arm or shoulder. Also increased in intensity with taking deep breath. Patient has had an exercise stress test done in December of this year which was negative for ischemic ECG changes. Patient serial troponins have been negative. A CT angio of the chest was negative for pulmonary embolism. [facility] Medical History (Updated 04/23/23 @ 13:[address] Laina Castro MD) Anemia Coronary artery calcification seen on CAT scan Family history of diabetes mellitus Family history of early CAD Family history of Donte's disease GERD (gastroesophageal reflux disease) Hiatal hernia Hypercholesteremia Hyperlipemia Primary hypertension Pulmonary fibrosis Home Medications aspirin 81 mg chewable tablet ([place] Chewable Low Dose Aspirin) 81 mg PO DAILY HEART HEALTH 03/04/23 [History Last Taken Unknown] benazepril 10 mg tablet (Lotensin) 10 mg PO DAILY BLOOD PRESSURE 03/04/23 [History Last Taken Unknown] ezetimibe 10 mg tablet (Zetia) 10 mg PO DAILY CHOLESTEROL 03/04/23 [History Last Taken Unknown] meclizine 25 mg tablet 25 mg PO DAILY PRN DIZZINESS 03/04/23 [History Last Taken Unknown] metoclopramide HCl 5 mg tablet (Reglan) 5 mg PO QAC HEARTBURN 03/04/23 [History Last Taken Unknown] omeprazole 40 mg capsule,delayed release 40 mg PO BID ACID REFLUX 03/04/23 [History Last Taken Unknown] simvastatin 20 mg tablet (Zocor) 20 mg PO QHS CHOLESTEROL 03/04/23 [History Last Taken Unknown] Allergy/AdvReac Type Severity Reaction Status Date / Time Penicillins Allergy Nausea Verified 03/04/23 08:27 Family History Mother , age 60 Diabetes Heart disease Father , age 50 Myocardial infarction Sister Diabetes Sister , age 60 Donte disease Brother , age 50 AA (alcohol abuse) Donte disease Brother , age 60 [place] disease Surgical History H/O colonoscopy History of bilateral cataract extraction History of bladder suspension procedure History of total abdominal hysterectomy Social History household members: spouse housing: house Smoking Status: Never smoker second hand exposure: Yes alcohol intake: never Physical Exam Narrative Comfortable. No apparent distress. Heart sounds 1 and 2 are normal. Chest clear to auscultation bilaterally. Abdomen soft. Alert oriented x3. No ankle edema noted. Risk Stratification Risk Stratification Applicable: No Objective Data Vital Signs: Vital Signs Temp Pulse Resp BP Pulse Ox O2 Del Method 98.6 F 72 18 123/73 H 96 Room Air 04/23/23 07:55 04/23/23 08:11 04/23/23 07:55 04/23/23 07:55 04/23/23 07:55 04/23/23 07:55 Oxygen Delivery Method Room Air Weight: 143 lb 1.28 oz Body Mass Index (BMI) 23.1 Lab / Micro Data 04/23/23 05:05 04/23/23 05:05 Labs: Laboratory Results - last 24 hr 04/22/23 14:17: WBC 10.5, RBC 4.19 L, Hgb 11.9 L, Hct 38.4, MCV 91.6, MCH 28.4, MCHC 31.0 L, RDW Std Deviation 47.2 H, RDW Coeff of Rocio 14.0, Plt Count 223, MPV 9.9, Immature Gran % (Auto) 0.500, Neut % (Auto) 80.4 H, Lymph % (Auto) 12.0 L, [place] % (Auto) 6.6, Eos % (Auto) 0.1, Baso % (Auto) 0.4, Absolute Neuts (auto) 8.4 H, Absolute Lymphs (auto) 1.26, Nucleated RBC % 0, Sodium 138, Potassium 3.7, Chloride 108 H, Carbon Dioxide 23.0, Anion Gap 7, BUN 17, Creatinine 1.03 H, Estim Creat Clear Calc 46.22, Est GFR (MDRD) Af Amer 68, Est GFR (MDRD) Non-Af 56 L, BUN/Creatinine Ratio 16.5, Glucose 121 H, Calcium 8.3 L, Troponin I High Sens 43 04/22/23 16:27: Troponin I High Sens 43 04/22/23 18:31: D-Dimer Quant (PE/DVT) 1.73 H*, Hemoglobin A1c 5.7 H 04/22/23 21:07: Troponin I High Sens 48, Triglycerides 86, Cholesterol 144, LDL Cholesterol 71, VLDL Cholesterol 17, HDL Cholesterol 56 04/23/23 05:05: WBC 7.7, RBC 3.93 L, Hgb 10.9 L, Hct 35.6 L, MCV 90.6, MCH 27.7, MCHC 30.6 L, RDW Std Deviation 47.0 H, RDW Coeff of Rocio 14.2, Plt Count 243, MPV 10.2, Immature Gran % (Auto) 0.400, Neut % (Auto) 74.7 H, Lymph % (Auto) 17.8 L, [place] % (Auto) 6.6, Eos % (Auto) 0.1, Baso % (Auto) 0.4, Absolute Neuts (auto) 5.7, Absolute Lymphs (auto) 1.37, Nucleated RBC % 0, Sodium 141, Potassium 4.4, Chloride 112 H, Carbon Dioxide 25.0, Anion Gap 4 L, BUN 12, Creatinine 0.74, Estim Creat Clear Calc 47.60, Est GFR (MDRD) Af Amer 99, Est GFR (MDRD) Non-Af 82, BUN/Creatinine Ratio 16.2, Glucose 106, Calcium 8.4 L, Phosphorus 3.8, Magnesium 2.2, Total Bilirubin 0.80, AST 11 L, ALT 15, Alkaline Phosphatase 95, Total Protein 5.9 L, Albumin 3.1 L, Globulin 2.8, Albumin/Globulin Ratio 1.1 Rhythm Strip Rhythm Strip: Sinus Rhythm Rate: 93 Ectopy: PAC(s) Cardiology Labs/Tests 04/22/23 14:17: WBC 10.5, RBC 4.19 L, Hgb 11.9 L, Hct 38.4, MCV 91.6, MCH 28.4, MCHC 31.0 L, Plt Count 223, MPV 9.9, Immature Gran % (Auto) 0.500, Neut % (Auto) 80.4 H, Lymph % (Auto) 12.0 L, [place] % (Auto) 6.6, Eos % (Auto) 0.1, Baso % (Auto) 0.4, Absolute Neuts (auto) 8.4 H, Nucleated RBC % 0, Sodium 138, Potassium 3.7, Chloride 108 H, Carbon Dioxide 23.0, Anion Gap 7, BUN 17, Creatinine 1.03 H, Est GFR (MDRD) Af Amer 68, Est GFR (MDRD) Non-Af 56 L, BUN/Creatinine Ratio 16.5, Glucose 121 H, Calcium 8.3 L 04/22/23 18:31: D-Dimer Quant (PE/DVT) 1.73 H*, Hemoglobin A1c 5.7 H 04/22/23 21:07: Triglycerides 86, Cholesterol 144, LDL Cholesterol 71, VLDL Cholesterol 17, HDL Cholesterol 56 04/23/23 05:05: WBC 7.7, RBC 3.93 L, Hgb 10.9 L, Hct 35.6 L, MCV 90.6, MCH 27.7, MCHC 30.6 L, Plt Count 243, MPV 10.2, Immature Gran % (Auto) 0.400, Neut % (Auto) 74.7 H, Lymph % (Auto) 17.8 L, [place] % (Auto) 6.6, Eos % (Auto) 0.1, Baso % (Auto) 0.4, Absolute Neuts (auto) 5.7, Nucleated RBC % 0, Sodium 141, Potassium 4.4, Chloride 112 H, Carbon Dioxide 25.0, Anion Gap 4 L, BUN 12, Creatinine 0.74, Est GFR (MDRD) Af Amer 99, Est GFR (MDRD) Non-Af 82, BUN/Creatinine Ratio 16.2, Glucose 106, Calcium 8.4 L, Phosphorus 3.8, Magnesium 2.2, Total Bilirubin 0.80 Rhythm: EKG: ECHO: Stress Test: Cardiac Cath: PCI: CT Surgery: Holter monitor: EPS: PPM: CXR: Chest CT Scan: Radiography Diagnostic Testing: Radiology Impression Chest X-Ray 04/22/23 14:30 IMPRESSION: Mild cardiomegaly. Large hiatal hernia. Electronically Signed: Mamadou Galaviz MD at 14:42 EDT , Chest CTA 04/22/23 20:40 IMPRESSION: undefined KUB X-Ray 04/22/23 23:35 IMPRESSION: Large hiatal hernia. Electronically Signed: Uri Barry MD at 0:02 EDT ,
--- NOTE | 2023-04-23 13:05 | DCINST_ITS ---
Discharge Instructions Diet Discharge Diet: Low fat / Low cholesterol Activity Discharge Activity: Return to Normal Activity Dressing / Incision Call your doctor if you observe: Fever of 101 or Higher, Shortness of breath, Dizziness, Fainting spells, Swelling in the ankles, Chest pain and Increased palpitations (irregular heartbeat) Follow Up Care Test Results: Test results from this visit will be discussed in further detail at your follow- up appointment, if applicable. Discharge Plan Admission Admit Date/Time: 04/22/23 17:35 Attending Provider: Tamir Rodriguez Primary Care Provider: Francois Tong Consulting Providers: Laina Castro; Stefany Durham Instructions Patient Instructions: ED Chest Pain, Uncertain Cause Discharge Orders/Prescriptions Prescriptions: New amlodipine [Norvasc] 2.5 mg tablet 2.5 mg PO DAILY Qty: 30 0RF Continued aspirin [[place] Chewable Aspirin] 81 mg tablet,chewable 81 mg PO DAILY ezetimibe [Zetia] 10 mg tablet 10 mg PO DAILY meclizine 25 mg tablet 25 mg PO DAILY PRN (Reason: DIZZINESS ) metoclopramide HCl [Reglan] 5 mg tablet 5 mg PO QAC benazepril [Lotensin] 10 mg tablet 10 mg PO DAILY omeprazole 40 mg capsule,delayed release(DR/EC) 40 mg PO BID simvastatin [Zocor] 20 mg tablet 20 mg PO QHS Referrals / Follow Up: Laina Castro MD [Med Staff - Active Staff] - Within 2 Weeks Francois Tong DO [Primary Care Provider] - As soon as possible Disposition Disposition (needs filled in before D/C Order can be placed): Home, Self Care
--- NOTE | 2023-04-23 13:23 | PCM.DC.SUM ---
Providers Date of Admission: 04/22/23 Primary Care Physician: Dr. Francois Tong, Consultations 04/22/23 19:32 Consult: Cardiology Routine Consulting Provider: Laina Castro Reason for Consult: CHEST PAIN with recent neg Stress test EMERGENT Consult: No MD Notified: Yes Date Notified: 04/22/23 Time Notified: 17:36 Method of Notification: ED Physician Initiated Reason For Visit: CHEST PAIN Diagnosis Discharge Diagnosis (1) Chest pain: Status: Acute Code(s): R07.9 - Chest pain, unspecified (2) History of hypertension: Status: Acute Code(s): Z86.79 - Personal history of other diseases of the circulatory system (3) Dyslipidemia: Status: Acute Code(s): E78.5 - Hyperlipidemia, unspecified (4) Hiatal hernia: Status: Acute Code(s): K44.9 - Diaphragmatic hernia without obstruction or gangrene Medications at Discharge Home Medications aspirin 81 mg chewable tablet ([place] Chewable Low Dose Aspirin) 81 mg PO DAILY HEART HEALTH 03/04/23 benazepril 10 mg tablet (Lotensin) 10 mg PO DAILY BLOOD PRESSURE 03/04/23 ezetimibe 10 mg tablet (Zetia) 10 mg PO DAILY CHOLESTEROL 03/04/23 meclizine 25 mg tablet 25 mg PO DAILY PRN DIZZINESS 03/04/23 metoclopramide HCl 5 mg tablet (Reglan) 5 mg PO QAC HEARTBURN 03/04/23 omeprazole 40 mg capsule,delayed release 40 mg PO BID ACID REFLUX 03/04/23 simvastatin 20 mg tablet (Zocor) 20 mg PO QHS CHOLESTEROL 03/04/23 amlodipine 2.5 mg tablet (Norvasc) 2.5 mg PO DAILY #30 tabs 04/23/23 Hospital Course Operations None Procedures None Summary of Care Provided Minutes Spent on Discharge: 34 Hospital Course: Per HPI: HERMELINDO MANZO, is a 72 F who presented to the emergency department at [facility] on 04/22/2023 after experiencing chest pain. Patient reports it started at noon and she was in her kitchen getting some potato chips and had just eaten them. She states the pain started in her chest and felt like pressure radiated to her left arm and up into her bilateral neck. She had never had this previously. She has had ongoing fatigue for couple years and worsening shortness of breath for about the last 2 months. She had a stress test in December that was unremarkable and had PFTs done at that time which showed mild restrictive impairment however no signs of obstructive disease or explanation for her exertional shortness of breath. She does have a history of hypertension hyperlipidemia. She has a strong family history of coronary disease with both of her parents dying young. Mother at 62 from coronary disease and she states her father at about 58 from coronary disease. She has 1 sister with coronary disease as well. She has never had any previous cardiac issues. She has no history of tobacco abuse however she was exposed as a child. She was given nitro in the emergency department and her symptoms did subside. She is currently chest pain-free. She had some associated nausea but denies any associated diaphoresis or shortness of breath at the time of her chest pain. Vital signs on presentation showed temperature of 97.1, heart rate 100, blood pressure 166/93, respiratory was 16 oxygen saturations were 99% on room air. CBC was overall unremarkable other than mild anemia at 11.9 however baseline is unclear. Her chemistry panel was unremarkable. Serum glucose was 121 on presentation. Troponin was 43 and 43 on delta. EKG shows sinus rhythm without any interval abnormalities or ST-T wave changes concerning for acute ischemia. Her chest x-ray shows a hiatal hernia and mild cardiomegaly but no acute findings. The case was discussed by the emergency department with cardiology. Cardiology recommended a CT angiogram however these are unable to be done as an inpatient and with her symptoms and risk factors it was felt admission with evaluation for possible cardiac catheterization given her recent negative stress test was prudent. This was discussed with the family and she agreed to admission. Hospital Course: 1. Chest pain/HTN/HLD?72-year-old female presented to the hospital with episodes of chest pain she had recently had a stress test back in December that was unremarkable and she has had cardiac cath within the last 12 months that was normal. She did have a repeat of the chest pain this morning but it was due to medications and when she took a GI cocktail it completely resolved her chest pain. She was evaluated by cardiology who felt that she would at least benefit from a low-dose Norvasc on discharge and for outpatient follow-up for CT scan for coronary arteries as an outpatient. In the meantime given the symptomatology I also recommend that she follow-up with either GI or possible surgery for her issue with hiatal hernias and her GERD. I discussed with her and her the plan for discharge today they expressed understanding of the risk benefits going home and would like to go home today. 2. GERD, hiatal hernia, pulmonary fibrosis chronic medical conditions which complicate her care. Her home medications were continued where appropriate Physical Exam Narrative General: Alert, Oriented x3, Cooperative, No apparent distress HEENT: Atraumatic, PERRLA, EOMI, Normocephalic Oral: Moist Mucosa Neck: Supple, No JVD Lungs: Clear to auscultation, Normal air movement, No rhonchi, No wheeze, No rales Cardiovascular: Regular rate, Regular Rhythm, Normal S1, Normal S2, No murmurs Abdomen: Soft, Non Tender, Non-Distended, No Hepato-splenomegaly Extremities: No edema, Capillary Refill Less than 3 Seconds Skin: No rashes, No breakdown Musculoskeletal: No Tenderness to Palpation of Joints or Extremities Neurological: Cranial nerves II-XII grossly intact, Motor Exam 5/5 strength throughout, Sensory exam intact to light touch and pain Psych/Mental Status: Normal Affect, Appropriate Weight / BMI Weight Weight: 143 lb 1.28 oz Body Mass Index (BMI) 23.1 ABG / Lab / Microbiology Data 04/23/23 05:05 04/23/23 05:05 Laboratory: Laboratory Results - last 24 hr 04/22/23 14:17: WBC 10.5, RBC 4.19 L, Hgb 11.9 L, Hct 38.4, MCV 91.6, MCH 28.4, MCHC 31.0 L, RDW Std Deviation 47.2 H, RDW Coeff of Rocio 14.0, Plt Count 223, MPV 9.9, Immature Gran % (Auto) 0.500, Neut % (Auto) 80.4 H, Lymph % (Auto) 12.0 L, [place] % (Auto) 6.6, Eos % (Auto) 0.1, Baso % (Auto) 0.4, Absolute Neuts (auto) 8.4 H, Absolute Lymphs (auto) 1.26, Nucleated RBC % 0, Sodium 138, Potassium 3.7, Chloride 108 H, Carbon Dioxide 23.0, Anion Gap 7, BUN 17, Creatinine 1.03 H, Estim Creat Clear Calc 46.22, Est GFR (MDRD) Af Amer 68, Est GFR (MDRD) Non-Af 56 L, BUN/Creatinine Ratio 16.5, Glucose 121 H, Calcium 8.3 L, Troponin I High Sens 43 04/22/23 16:27: Troponin I High Sens 43 04/22/23 18:31: D-Dimer Quant (PE/DVT) 1.73 H*, Hemoglobin A1c 5.7 H 04/22/23 21:07: Troponin I High Sens 48, Triglycerides 86, Cholesterol 144, LDL Cholesterol 71, VLDL Cholesterol 17, HDL Cholesterol 56 04/23/23 05:05: WBC 7.7, RBC 3.93 L, Hgb 10.9 L, Hct 35.6 L, MCV 90.6, MCH 27.7, MCHC 30.6 L, RDW Std Deviation 47.0 H, RDW Coeff of Rocio 14.2, Plt Count 243, MPV 10.2, Immature Gran % (Auto) 0.400, Neut % (Auto) 74.7 H, Lymph % (Auto) 17.8 L, [place] % (Auto) 6.6, Eos % (Auto) 0.1, Baso % (Auto) 0.4, Absolute Neuts (auto) 5.7, Absolute Lymphs (auto) 1.37, Nucleated RBC % 0, Sodium 141, Potassium 4.4, Chloride 112 H, Carbon Dioxide 25.0, Anion Gap 4 L, BUN 12, Creatinine 0.74, Estim Creat Clear Calc 47.60, Est GFR (MDRD) Af Amer 99, Est GFR (MDRD) Non-Af 82, BUN/Creatinine Ratio 16.2, Glucose 106, Calcium 8.4 L, Phosphorus 3.8, Magnesium 2.2, Total Bilirubin 0.80, AST 11 L, ALT 15, Alkaline Phosphatase 95, Total Protein 5.9 L, Albumin 3.1 L, Globulin 2.8, Albumin/Globulin Ratio 1.1 Radiography Diagnostic Testing: Radiology Impression Chest X-Ray 04/22/23 14:30 IMPRESSION: Mild cardiomegaly. Large hiatal hernia. Electronically Signed: Mamadou Galaviz MD at 14:42 EDT , Chest CTA 04/22/23 20:40 IMPRESSION: undefined KUB X-Ray 04/22/23 23:35 IMPRESSION: Large hiatal hernia. Electronically Signed: Uri Barry MD at 0:02 EDT Reading Location ID and State: [address] [place] [address] Tel , Service support , D/C Instructions Discharge Diet: Low fat / Low cholesterol Call your doctor if you observe: Fever of 101 or Higher, Shortness of breath, Dizziness, Fainting spells, Swelling in the ankles, Chest pain and Increased palpitations (irregular heartbeat) Meaningful Use Info Meaningful Use Diagnoses (Choose all that apply): None applicable Discharge Plan Admission Admit Date/Time: 04/22/23 17:35 Attending Provider: Tamir Rodriguez Primary Care Provider: Francois Tong Consulting Providers: Laina Castro; Stefany Durham Instructions Patient Instructions: ED Chest Pain, Uncertain Cause Discharge Orders/Prescriptions Prescriptions: New amlodipine [Norvasc] 2.5 mg tablet 2.5 mg PO DAILY Qty: 30 0RF Continued aspirin [[place] Chewable Aspirin] 81 mg tablet,chewable 81 mg PO DAILY ezetimibe [Zetia] 10 mg tablet 10 mg PO DAILY meclizine 25 mg tablet 25 mg PO DAILY PRN (Reason: DIZZINESS ) metoclopramide HCl [Reglan] 5 mg tablet 5 mg PO QAC benazepril [Lotensin] 10 mg tablet 10 mg PO DAILY omeprazole 40 mg capsule,delayed release(DR/EC) 40 mg PO BID simvastatin [Zocor] 20 mg tablet 20 mg PO QHS Referrals / Follow Up: Laina Castro MD [Med Staff - Active Staff] - Within 2 Weeks Francois Tong DO [Primary Care Provider] - As soon as possible Disposition Disposition (needs filled in before D/C Order can be placed): Home, Self Care Charges/Coding Visit Charges Inpatient E&M: 00741 Disch Hosp >30min
[2023-04-23 13:39] VITALS: BP 153/79; PULSE 73; RESP 16; TEMP 36.5; O2SAT 97
--- NOTE | 2023-04-23 13:41 | PHA.DC_ITS ---
Pharmacy [facility] has performed discharge medication reconciliation and counseling for this patient. The patient's discharge medication list was reviewed for discrepancies and discrepancies were resolved. The patient was counseled on the following discharge medications and changes in medications for homegoing were reviewed. The Reason for Use, instructions for use, and potential side effects were reviewed for all new medications. The patient's questions regarding all of their medications were answered. 1. Amlodipine 2.5 mg PO daily The patient was able to verbally demonstrate an understanding of their discharge medications. Medications at Discharge Home Medications aspirin 81 mg chewable tablet ([place] Chewable Low Dose Aspirin) 81 mg PO DAILY HEART HEALTH 03/04/23 benazepril 10 mg tablet (Lotensin) 10 mg PO DAILY BLOOD PRESSURE 03/04/23 ezetimibe 10 mg tablet (Zetia) 10 mg PO DAILY CHOLESTEROL 03/04/23 meclizine 25 mg tablet 25 mg PO DAILY PRN DIZZINESS 03/04/23 metoclopramide HCl 5 mg tablet (Reglan) 5 mg PO QAC HEARTBURN 03/04/23 omeprazole 40 mg capsule,delayed release 40 mg PO BID ACID REFLUX 03/04/23 simvastatin 20 mg tablet (Zocor) 20 mg PO QHS CHOLESTEROL 03/04/23 amlodipine 2.5 mg tablet (Norvasc) 2.5 mg PO DAILY #30 tabs 04/23/23
--- NOTE | 2023-04-23 14:35 | CASEMGMT ---
Patient has order for discharge. RN CM in to discuss needs at discharge. Patient denies needs at discharge. Patient had no further questions or concerns at this time.
[2023-04-23] MEDS: Flu Vacc QS2023-24(65YR UP)/PF 240 MCG/0.7 ML Syringe IM (15:01)
== END 2023-04-23 13:08 | disposition home or self-care (01) ==
LOC: ED 17:14 → PCU 18:09
PROVIDERS: Admitting Provider Internal Medicine; Emergency Provider Emergency Medicine; PCP Family Medicine; Visit Provider Family Medicine
DX: R07.89 Other chest pain (principal); J84.10 Pulmonary fibrosis, unspecified; K44.9 Diaphragmatic hernia without obstruction or gangrene; E78.00 Pure hypercholesterolemia, unspecified; I25.10 Atherosclerotic heart disease of native coronary artery without angina pectoris; I10 Essential (primary) hypertension; Z79.82 Long term (current) use of aspirin; K21.9 Gastro-esophageal reflux disease without esophagitis; R06.02 Shortness of breath; Z23 Encounter for immunization; Z86.79 Personal history of other diseases of the circulatory system; Z79.899 Other long term (current) drug therapy; M79.602 Pain in left arm
CPT/HCPCS: 36415; 71045; 71275; 74018; 80048; 80053; 80061; 83036; 83735; 84100; 84484; 85025; 85379; 93005; 93306; 94668; 96374; 96375; 99221; 99285; G0008; J7120; Q9957; Q9967; 90662; C8929; G0378; J2405